=== PATIENT | female | born 1985 | race African-American/Black ===

== ENCOUNTER 2020-01-11 04:06 | Emergency (ER) | payer OTHER ==
[~2020-01-11] VITALS: Ht 172.7 cm; Wt 113.4 kg
[2020-01-11 04:53] LABS: ANION GAP 12 mmol/L (7-16); BUN 8 mg/dL (7-18); CALCIUM 8.8 mg/dL (8.5-10.1); CHLORIDE 102 mmol/L (98-107); CO2 24 mmol/L (21-32); GLUCOSE 113 mg/dL (74-106); POTASSIUM 3.4 mmol/L (3.5-5.1); SODIUM 138 mmol/L (136-145)
[2020-01-11 04:54] LABS: ABSOLUTE NEUTROPHILS 3.3 thou/uL (1.4-8.2); BASOPHILS 0.8 % (0.0-2.0); EOSINOPHILS 0.1 % (0.0-3.0); HEMOGLOBIN 12.9 gm/dL (12.0-15.0); LYMPHOCYTES 23.1 % (24.0-44.0); MCH 29.2 pg (26.0-34.0); MCHC 33.9 g/dL (28.0-37.0); MCV 86.2 fL (80.0-100.0); MONOCYTES 8.1 % (1.0-8.0); PLATELET COUNT 290 thou/uL (150-400); POLYS 67.9 % (36.0-66.0); RBC 4.41 mil/uL (4.20-5.00); RDW 13.1 % (10.5-14.5); WBC 4.8 thou/uL (4.0-11.0)
[2020-01-11 04:59] LABS: ALBUMIN 4.1 g/dL (3.4-5.0); DIRECT BILIRUBIN < 0.1 mg/dL (<0.1-0.2); SGOT 22 U/L (15-37); SGPT 19 U/L (30-65); TOTAL BILIRUBIN 0.3 mg/dL (0.2-1.0); TOTAL PROTEIN 8.4 g/dL (6.4-8.2)
[2020-01-11 05:02] LABS: URINE BILIRUBIN NEGATIVE (Negative); URINE BLOOD TRACE (Negative); URINE CLARITY CLEAR; URINE COLOR YELLOW; URINE GLUCOSE-RANDOM* NEGATIVE (Negative); URINE KETONES NEGATIVE (Negative); URINE LEUKOCYTES-REFLEX NEGATIVE (Negative); URINE NITRITE-REFLEX NEGATIVE (Negative); URINE PROTEIN (DIPSTICK) 1+ (Negative); URINE SPECIFIC GRAVITY >= 1.030 (1.005-1.035); URINE UROBILINOGEN 0.2 E.U./dl (0.2-1.0)
[2020-01-11 05:10] LABS: AMP/METHAMP Negative (Negative); BARBITURATES Negative (Negative); BENZODIAZEPINES Negative (Negative); COCAINE Negative (Negative); METHADONE Negative (Negative); OPIATES Negative (Negative); PCP Negative (Negative)
[2020-01-11 05:18] LABS: SQUAMOUS None Seen /LPF (0-3)
[2020-01-11 05:19] LABS: BACTERIA-REFLEX None Seen /HPF (None Seen); CRYSTALS None Seen /LPF (None Seen); FINE GRANULAR CASTS 4-10 Moderate /LPF (None Seen); HYALINE CASTS 0-3 Few /LPF (None Seen); MUCUS 4-6 Moderate strn/LPF (None Seen); URINE RBC None Seen /HPF (0-2); URINE WBC-REFLEX None Seen /HPF (0-5)
[2020-01-11] MEDS ORDERED: NOHOMEMEDICATIONS (05:24)
[2020-01-11 11:47] VITALS: BP 143/79
== END 2020-01-11 11:50 | disposition home or self-care (01) ==
LOC: ER 04:06
PROVIDERS: Emergency Medicine
DX: F41.0 Panic disorder [episodic paroxysmal anxiety] (principal); F43.0 Acute stress reaction; R41.82 Altered mental status, unspecified

== ENCOUNTER 2020-01-15 05:43 | Inpatient (IN) | payer OTHER ==
[~2020-01-15] VITALS: Ht 172.7 cm; Wt 105.3 kg
[~2020-01-15 05:43] MED LIST: NOHOMEMEDICATIONS
[2020-01-15 05:48] VITALS: BP 122/74
[2020-01-15 06:51] LABS: HEMATOCRIT 43.1 % (37.0-47.0); HEMOGLOBIN 14.5 gm/dL (12.0-15.0); MCH 29.2 pg (26.0-34.0); MCHC 33.7 g/dL (28.0-37.0); MCV 86.8 fL (80.0-100.0); RBC 4.97 mil/uL (4.20-5.00); RDW 13.1 % (10.5-14.5); WBC 5.6 thou/uL (4.0-11.0)
[2020-01-15 06:55] LABS: AMP/METHAMP Negative (Negative); BARBITURATES Negative (Negative); BENZODIAZEPINES Negative (Negative); COCAINE Negative (Negative); METHADONE Negative (Negative); OPIATES Negative (Negative); PCP Negative (Negative)
[2020-01-15 07:05] LABS: CALCIUM 9.3 mg/dL (8.5-10.1); CREATININE 0.9 mg/dL (0.6-1.0); POTASSIUM 3.7 mmol/L (3.5-5.1)
[2020-01-17 05:43] VITALS: BP 112/67
[2020-01-17 05:58] VITALS: BP 131/81
[2020-01-17 06:45] VITALS: BP 124/93
[2020-01-17 12:11] VITALS: BP 149/92
--- NOTE | 2020-01-17 15:16 | NUR ---
CM ATTEMPTED THE INITIAL ASSESSMENT W/PT VIA TELEPHONE D/T PT BEING COVID POSITIVE. PT PRESENTED AGITATED, BC "THEY WONT LET ME LEAVE." PT MINIMIZED PSYCHOTIC EPISODE HAVING "A LITTLE ANXIETY" PT CONT TO SAYS, EPISODE WAS D/T TO "BEING TIRED." PT SAYS SHE HAS NO SUPPORT FROM FAMILY OR HELP W/CHILDREN. PT STATED HER GRANDMOTHER HAS HER CHILDREN ONLY B/C SHE IS HOSPITALIZED, BUT NO OTHER TIME WILL THEY HELP W/CHILDREN AND SHE IS TIRED AND DONT GET TO SLEEP. PT STATED SHE LIVES W/3 CHILDREN, 13, 5, & 9 MONTHS AND NEITHER ONE OF THE CHILDREN'S FATHER ARE IN HER LIFE. PT PRESENTED GAURD AND NONCOOPERATIVE. PT STATED SHE WASNT GOING TO ANSWER MY QUESTIONS. PT STATED SHE DID NOT PRESENT W/ANXIETY AT ADMISSION, "i JUST EXTRA PRECAUTIOUS." PT HUNG UP ON THE CM. CM TO CONT TO FOLLOW.
[2020-01-17 17:04] VITALS: BP 133/96
--- NOTE | 2020-01-17 19:21 | NUR ---
PT WAS SEEN BY / DURING THIS SHIFT. PT HAD MANY BEHAVIOURAL ISSUES/ THREATENING BEHAVIOURS/STATEMENTS OF ELOPEMENT/CONFRONTATIONAL BEHAVIOURS/AND MANIC PRESENTATIONS. PT WAS PACING THROUHOUT THE SHIFT, WOULD NOT COOPERATE WITH MEDICATION ADMINSITRATION/ THREATENING TO [facility]OS[facility] AND THE STAFF MEMBERS/ AND OPENING THE DOORS AFTER REPEATEDLY TOLD NOT TO OPEN THE DOOR FOR COVID REASONS. PT THREATENED TO LEAVE MULTIPLE TIMES. PRN ATIVAN WAS GIVEN WAS NOT EFFECTIVE/ OLANZAPINE DID NOT SEEM TO HAVE AN EFFECT ON THE PATIENT AT THIS TIME. 1:1 SITTER IS HIGHLY RECOMMENDED FOR ELOPEMENT AND STAFF/OTHER PATIENT SAFETY REASONS. RN WAS ABLE TO RETREIVE THE GRANDMOTHER'S CONTACT. PT RECEIVED HER BREAST PUMP KIT FROM HOME WELL CLOTHING FROM THE ED. RN SIGNING OFF AT THIS TIME
[2020-01-17 20:50] VITALS: BP 137/93
[2020-01-18 05:26] VITALS: BP 132/82
--- NOTE | 2020-01-18 07:44 | NUR ---
Pt. able to state name ,bday , she's at [facility] and she has COVID. She easily gets upset , very paranoid and confrontational. She initially refused HS meds stating we just want her to take meds so we can sell her body parts. Explained to pt. what meds are for and it's recommended by her psychiatrist. She later on took it while continously talking. She verbalized she wants to go home already. Sitter at bedside for safety who stated she eventually slept and stayed asleep for approximately 3 hrs. Once she woke up she took a shower.
--- NOTE | 2020-01-18 13:08 | NUR ---
SW reviewed chart and spoke with nursing. Pt remains in Enhanced Isolation due to COVID-19. Pt is afebrile and not requiring O2. Pt is not on IV meds. Psych is consulted and is following. 1:1 sitter present at bedside. Awaiting input from psych at this time. SW is following to assist as needed with discharge planning.
--- NOTE | 2020-01-18 18:19 | NUR ---
UPON START OF SHIFT, PT WAS AGGRESSIVE TOWARDS DR NURSE ANS WAS WANTING TO SIGN OUT AMA. FEW MOMENT LATER PT SEEMED TO BE CALM, PLEASANT AND COOPERATIVE. REFUSE HER NEOSPRIN CREAM THIS AM, BUT TOOK ALL HER AM MEDICATIONS. PT IS ALERT AND OIRENTED X4, DENIES ANY PAIN, NAUSEA AND VOMITTING. CONTINUES TO EXPRESS SHE WANTS TO GO HOME TO TAKE CARE OFF HER KIDS, DR. NICOLE IS AWARE AND STATED PT WILL BE ABLE TO GET DISCHARGE TOMORROW. PT CONTINUES TO HAVE SITTER DUE TP POSSIBLE LEAVING AGAINST MEDICAL ADVISE. WILL CONTINUE TO MONITOR.
[2020-01-18 19:07] VITALS: BP 121/84
[2020-01-19 03:47] VITALS: BP 155/89
--- NOTE | 2020-01-19 07:05 | NUR ---
Pt. slept better last night. She's a lot calmer though still has paranoia stating medication we're giving is going to kill her. She agreed to have lovenox last night after explaining what it is for. Sitter in room for safety. Pt. verbalizing she wants to go home and see her kids. Tolerating room air well with no respiratory distress. Afebrile.
[2020-01-19 07:08] VITALS: BP 119/79
[2020-01-19] MEDS ORDERED: OLANZAPINE ODT5 MG PO (09:39)
[2020-01-19] MEDS ORDERED: DIVALPROEX SOD500 M1 PO (09:39)
[2020-01-19 11:41] VITALS: BP 119/79
--- NOTE | 2020-01-19 13:12 | NUR ---
DISCHARGE NOTE: Received consult for discharge plan. SW reviewed chart and spoke with nursing. Pt has 1:1 sitter at bedside due to being an elopement risk. Pt is medically stable for discharge home. Psych also cleared pt for discharge home. Pt with hx of bipolar disorder. Pt was provided with info for follow up with psych and also [facility]. Pt is aware of need to continue isolation due to COVID. SW spoke with pt via phone to discuss discharge plan. Pt states her family is coming to pick her up soon. Pt states she does not have a PCP. SW discussed establishing care with a safety net clinic such as [facility]. Pt verbalized understanding and states she will find a clinic. SW faxed [facility] clinic info to the nurses station to provide to pt prior to discharge. SW notified nursing. Pt's scripts to be sent to her pharmacy. No additional SW needs identified at this time, but is available to assist should needs arise.
== END 2020-01-19 13:22 | disposition home or self-care (01) | DRG 178 ==
LOC: ER 05:43 → 3W 01-16 20:32 → EROBS 01-16 20:32 → 3W 01-17 05:59
PROVIDERS: Emergency Medicine; ADMIT Internal Medicine; ATTEND Hospitalist
DX: U07.1 COVID-19 (principal); F23 Brief psychotic disorder; F32.9 Major depressive disorder, single episode, unspecified; F25.9 Schizoaffective disorder, unspecified; Z87.891 Personal history of nicotine dependence
CPT/HCPCS: 10080